=== PATIENT | male | born 1960 | race American Indian/Alaskan Native ===

== ENCOUNTER 2019-02-02 00:06 | Emergency (ER) | payer OTHER ==
[2019-02-02] MEDS ORDERED: NEO-SYNEPHRINE 1 MG, NACL P/F VIAL (10 ML) 9.9 ML IJ**NOT IV ONE (00:13)
[2019-02-02] MEDS ORDERED: NITRO-BID 2% TP ONE (00:13)
[2019-02-02] MEDS ORDERED: BRETHINE SUB-Q ONE (00:14)
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
[2019-02-02] MEDS ORDERED: ZOFRAN IV ONE (00:19)
[2019-02-02] MEDS ORDERED: SUBLIMAZE IV ONE (00:19)
[2019-02-02] MEDS ORDERED: XYLOCAINE 1% 20 mL INFILTRATI ONE (00:21)
[2019-02-02 00:51] LABS: Basophils % (Auto) 0.7 % (0.0-1.8); Eosinophils # (Auto) 0.1 K/mm3 (0.0-0.4); Hematocrit 40.5 % (35.5-45.6); Hemoglobin 13.8 gm/dl (11.8-15.2); Lymphocytes # (Auto) 1.7 K/mm3 (1.2-5.4); Lymphocytes % (Auto) 27.1 % (13.4-35.0); Mean Corpuscular HGB Conc 34 % (32-34); Mean Corpuscular Volume 92 fl (84-94); Monocytes # (Auto) 0.4 K/mm3 (0.0-0.8); Monocytes % (Auto) 5.8 % (0.0-7.3); Platelet Count 221 K/mm3 (140-440); Red Blood Count 4.42 M/mm3 (3.65-5.03)
[2019-02-02 01:09] LABS: BUN/Creatinine Ratio 17; Blood Urea Nitrogen 17 mg/dL (9-20); Calcium 9.9 mg/dL (8.4-10.2); Hemolysis Index 6
[2019-02-02] MEDS ORDERED: NEO SYNEPHRINE 1 MG in NACL 0.9% 9.9 ML IV ONE (01:20)
[2019-02-02 01:24] LABS: INR 0.96 (0.87-1.13)
[2019-02-02 01:25] LABS: Partial Thromboplastin Time 24.2 Sec. (24.2-36.6)
[2019-02-02] MEDS ORDERED: NACL 0.9% 1000 ML 1,000 ML IV ONE (01:53)
[2019-02-02 07:00] VITALS: BP 125/69
== END 2019-02-02 07:23 | disposition home or self-care (01) ==
LOC: ED 00:06
DX: N48.30 Priapism, unspecified (principal); F17.200 Nicotine dependence, unspecified, uncomplicated
CPT/HCPCS: 36415; 54220; 80048; 85025; 85610; 85730; 96372; 96374; 96375; 99284; J2370; J2405; J3010; J3105